=== PATIENT | female | born 1945 | race Caucasian/White ===

== ENCOUNTER 2017-03-14 00:16 | Inpatient (IN) | payer MEDICARE, MEDICAID ==
[~2017-03-14] VITALS: Ht 162.6 cm; Wt 108.9 kg
--- NOTE | 2017-03-14 00:10 | NUR ---
Pt arrived to the hospital via transport and placed on Mac vent with the following settings of AC-12, Vt-500, PEEP+5, FIO2-40%. Pt trach with Portex # 8 cuffed trach, which is in placed and secure. No s/s of respiratory distress noted. Airway care done, pt responded to physical stimuli. Resus. bag at bedside. Vent and alarms on and audible.
[~2017-03-14 00:16] MED LIST: ACET325T53 PO; ALBU2.5V13 IH; AMIO200T2 PO; ASCO500T9 PO; ASPI-991 PO; BLOO-125 IN; CALC-20 PO; FERR-58 PO; GLUC1KIT6 IJ; HYDR30CR79 RC; IPRA0.2S6 NEB; LORA1TAB PO; MAG30ORA PO; MAGN400O4 PO; MAGN400T3 PO; METO25TA6 PO; MULT-619 PO; OMEP20CA10 PO; WARF4TAB41 PO; [UNRECOGNIZED DRUG - CODE] PO
[2017-03-14] MEDS ORDERED: LIOT5TAB3 PO (00:24)
[2017-03-14] MEDS ORDERED: CRAN450C PO (00:24)
[2017-03-14] MEDS ORDERED: HYDR28.316 RC (00:24)
[2017-03-14] MEDS ORDERED: LEVO50TA8 PO (00:24)
--- NOTE | 2017-03-14 00:29 | NUR ---
In-line HHn tx with 2.5mg Albuterol+0.5mg Atrovent given, pt tolerated well.
[2017-03-14] MEDS ORDERED: ALBUTEROL SULFATE 2.5 MG/3 ML NEBU NEB ONE (00:30)
[2017-03-14] MEDS ORDERED: IPRATROPIUM BROMIDE 0.5 MG/2.5 ML NEBU NEB ONE (00:30)
[2017-03-14] MEDS ORDERED: IV NORMAL SALINE 1000 ML BAG IV ONE (00:30)
[2017-03-14] MEDS ORDERED: ALBUTEROL SULFATE 2.5 MG/3 ML NEBU ONE ×2 (00:35→04:03)
[2017-03-14] MEDS ORDERED: IPRATROPIUM BROMIDE 0.5 MG/2.5 ML NEBU ONE ×2 (00:36→04:04)
[2017-03-14 00:39] LABS: BASOPHILS % (AUTO) 0.4 % (0.0-2.0); EOSINOPHILS # (AUTO) 0.2 K/uL (0.0-0.7); EOSINOPHILS % (AUTO) 2.1 % (0.0-7.0); HEMATOCRIT 32.6 % (37-47); HEMOGLOBIN 10.6 G/DL (12.0-16.0); LYMPHOCYTES # (AUTO) 1.4 K/UL (0.8-4.8); LYMPHOCYTES % (AUTO) 15.1 % (20.5-51.5); MEAN CORPUSCULAR HEMOGLOBIN 28.4 UUG (27.0-31.0); MEAN CORPUSCULAR HGB CONC 33 g/dL (32.0-37.0); MEAN CORPUSCULAR VOLUME 87.3 FL (81.0-99.0); MONOCYTES # (AUTO) 0.6 K/UL (0.1-1.30); MONOCYTES % (AUTO) 6.4 % (0.0-11.0); NEUTROPHILS # (AUTO) 7.4 K/UL (1.8-8.9); PLATELET COUNT (AUTO) 235 K/UL (150-450); RED BLOOD CELL COUNT(AUTO) 3.73 MIL/UL (4.2-5.4); WHITE BLOOD COUNT (AUTO) 9.6 K/UL (4.0-11.2)
[2017-03-14] MEDS ORDERED: PHEN177S31 MM ×2 (00:42→09:19)
[2017-03-14] MEDS ORDERED: LACT1CAP69 PO (00:42)
[2017-03-14] MEDS ORDERED: POLY15DR57 EACHEYE (00:42)
[2017-03-14] MEDS ORDERED: RIVA10TA PO (00:42)
[2017-03-14] MEDS ORDERED: CALC-995 PO (00:42)
[2017-03-14] MEDS ORDERED: HYDR-3326 PO (00:42)
[2017-03-14] MEDS ORDERED: METO25TA6 PO (00:42)
[2017-03-14] MEDS ORDERED: FAMO-132 PO (00:42)
[2017-03-14 00:46] LABS: CREATININE 1.1 mg/dL (0.6-1.3); POTASSIUM 4.2 mmol/L (3.5-5.1)
[2017-03-14] MEDS ORDERED: ALBU2.5V13 IH (00:55)
[2017-03-14] MEDS ORDERED: IPRA0.2S48 IH (00:55)
[2017-03-14] MEDS ORDERED: LIDOCAINE 3% TOP (00:55)
[2017-03-14 00:57] LABS: BILIRUBIN,DIRECT 0.1 mg/dL (0.0-0.2); BILIRUBIN,TOTAL 0.3 mg/dL (0.2-1.0); TOTAL PROTEIN, SERUM 7.9 g/dL (6.4-8.2)
--- NOTE | 2017-03-14 01:13 | NUR ---
Pt biba from facility for blood in colostomy bag. Pt trach dependent, lungs CTA. Pt morbidly obese, pos BS. Pt seen by MD. Labs drawn and sent. IV established. Pt resting in position of comfort for self.
--- NOTE | 2017-03-14 02:15 | NUR ---
Pt resting in position of comfort for self. No complaints at this time.
--- NOTE | 2017-03-14 03:30 | NUR ---
Pt cleaned and changed. Preparing to transfer pt to the floor
--- NOTE | 2017-03-14 03:55 | NUR ---
In-line HHN tx given, pt tolerated well.
[2017-03-14 04:00] VITALS: BP 113/63
[2017-03-14] MEDS ORDERED: ALBUTEROL SULFATE 2.5 MG/3 ML NEBU NEB SCH (04:00)
[2017-03-14] MEDS ORDERED: MORPHINE SULFATE 4 MG/1 ML DISP.SYRIN IV PRN (04:00)
[2017-03-14] MEDS ORDERED: IPRATROPIUM BROMIDE 0.5 MG/2.5 ML NEBU NEB SCH (04:00)
--- NOTE | 2017-03-14 04:00 | NUR ---
Pt medicated for discomfort. RT at bedside. Transferring pt to floor
[2017-03-14] MEDS ORDERED: MORPHINE SULFATE 4 MG/1 ML DISP.SYRIN ONE (04:03)
--- NOTE | 2017-03-14 04:30 | NUR ---
ADMIT NEW PATIENT TO ROOM 211,PATIENT ALERT, NOT IN DISTRESS,TOLERATED SAME VENT SETTING ,PULSE OXY AT BEDSIDE,PATIENT ABLE TO MAKE NEEDS KNOWN ALL NEEDS ATTENDED,INCONTINENT CARE DONE, COLOSTOMY BAG HAS SCANT AMOUNT OF BLOODY LIQUID STOOL.A PACING ON TALE MONITOR.
--- NOTE | 2017-03-14 04:46 | NUR ---
Pt transferred to room 211 on vent with two RT's and ORCHARD WORKER at bedside. No distress noted. Cont. pulse ox on. Back up trach and resus. bag at bedside. Vent and alarms on and audible.
--- NOTE | 2017-03-14 06:07 | NUR ---
Pt awake, alert, no s/s of respiratory distress noted. Present vent settings tolerated well, no changes made. Sx and lavage prn. HME and Sx [place] changed. Cont. pulse ox on. Vent and alarms on and audible.
[2017-03-14 06:53] LABS: BASOPHILS % (AUTO) 0.3 % (0.0-2.0); EOSINOPHILS # (AUTO) 0.3 K/uL (0.0-0.7); HEMATOCRIT 30.8 % (37-47); HEMOGLOBIN 10.1 G/DL (12.0-16.0); LYMPHOCYTES # (AUTO) 1.5 K/UL (0.8-4.8); MEAN CORPUSCULAR HEMOGLOBIN 29.8 UUG (27.0-31.0); MEAN CORPUSCULAR HGB CONC 33 g/dL (32.0-37.0); MEAN CORPUSCULAR VOLUME 90.9 FL (81.0-99.0); MONOCYTES # (AUTO) 0.7 K/UL (0.1-1.30); MONOCYTES % (AUTO) 8.5 % (0.0-11.0); NEUTROPHILS # (AUTO) 6.1 K/UL (1.8-8.9); NEUTROPHILS % (AUTO) 71.2 % (38.5-71.5); PLATELET COUNT (AUTO) 217 K/UL (150-450); RED BLOOD CELL COUNT(AUTO) 3.39 MIL/UL (4.2-5.4); WHITE BLOOD COUNT (AUTO) 8.6 K/UL (4.0-11.2)
[2017-03-14 07:24] VITALS: BP 119/70
[2017-03-14] MEDS ORDERED: BLOOD SUGAR DIAGNOSTIC 1 EACH STRIP VI SCH ×2 (07:30→17:30)
--- NOTE | 2017-03-14 08:00 | NUR ---
awake alert and oriented x 4, needs attended, communicates by writing, on vent with the following settings: AC 12, TV 500, FIO2 40%, PEEP 5 via trache, head of bed elevated, tele -paced at 70, colostomy on the left lower abdomen, with small amount of light brownish liquid, no fresh blood noted, safety measures maintained, call light within reach
[2017-03-14] MEDS ORDERED: DEXT15DR6 EACHEYE (09:18)
[2017-03-14] MEDS ORDERED: ASPIRIN EC 81 MG TABLET.DR PO SCH (10:00)
[2017-03-14] MEDS ORDERED: HYDROCODONE/APAP 5-325MG TABLET PO PRN (10:00)
[2017-03-14] MEDS ORDERED: MAG HYDROX/AL HYDROX/SIMETH 30 ML LIQUID UDC PO PRN (10:00)
[2017-03-14] MEDS ORDERED: PHENOL/SODIUM PHENOLATE SPRAY 177 ML BOTTLE MM PRN (10:00)
[2017-03-14] MEDS ORDERED: GLUCAGON,HUMAN RECOMBINANT 1 MG VIAL IM PRN (10:00)
[2017-03-14] MEDS ORDERED: MAGNESIUM HYDROXIDE 30 ML LIQUID UDC PO PRN (10:00)
[2017-03-14] MEDS ORDERED: POLYVINYL ALCOHOL OPHT DROPS 15 ML BOTTLE EACHEYE PRN (10:00)
[2017-03-14] MEDS ORDERED: INSULIN REGULAR, HUMAN 300 UNIT/3 ML VIAL SQ PRN (10:15)
[2017-03-14] MEDS ORDERED: DEXTROSE 50% 50 ML DISP.SYRIN IV PRN (10:15)
[2017-03-14] MEDS: ACETAMINOPHEN 325 MG TABLET PO PRN (10:59)
[2017-03-14] MEDS: AMIODARONE HCL 200 MG TABLET PO SCH (11:00)
[2017-03-14] MEDS: LORAZEPAM 0.5 MG TABLET PO SCH ×3 (11:00→19:03)
[2017-03-14] MEDS: LIOTHYRONINE SODIUM 5 MCG TABLET PO SCH (11:00)
[2017-03-14] MEDS: LEVOTHYROXINE SODIUM 50 MCG TABLET PO SCH (11:00)
--- NOTE | 2017-03-14 11:15 | NUR ---
seen by Dr Redman
[2017-03-14 11:35] VITALS: BP 116/64
--- NOTE | 2017-03-14 12:00 | NUR ---
appetite fair, repositioned q 2h with heels off loaded wisth pillows, no distress noted, sat at 99% with same vent settings, needs attended
[2017-03-14] MEDS: BLOOD SUGAR DIAGNOSTIC 1 EACH STRIP VI SCH ×3 (12:05→20:59)
[2017-03-14] MEDS: PANTOPRAZOLE SODIUM 40 MG TABLET.DR PO SCH (12:07)
[2017-03-14 12:15] LABS: BASOPHILS % (AUTO) 0.4 % (0.0-2.0); EOSINOPHILS # (AUTO) 0.2 K/uL (0.0-0.7); EOSINOPHILS % (AUTO) 2.9 % (0.0-7.0); HEMATOCRIT 31.5 % (37-47); HEMOGLOBIN 10.1 G/DL (12.0-16.0); LYMPHOCYTES # (AUTO) 1.2 K/UL (0.8-4.8); LYMPHOCYTES % (AUTO) 15.8 % (20.5-51.5); MEAN CORPUSCULAR HEMOGLOBIN 28.3 UUG (27.0-31.0); MEAN CORPUSCULAR HGB CONC 32 g/dL (32.0-37.0); MEAN CORPUSCULAR VOLUME 87.9 FL (81.0-99.0); MONOCYTES # (AUTO) 0.5 K/UL (0.1-1.30); NEUTROPHILS # (AUTO) 5.6 K/UL (1.8-8.9); NEUTROPHILS % (AUTO) 73.9 % (38.5-71.5); PLATELET COUNT (AUTO) 228 K/UL (150-450); RED BLOOD CELL COUNT(AUTO) 3.58 MIL/UL (4.2-5.4); WHITE BLOOD COUNT (AUTO) 7.5 K/UL (4.0-11.2)
[2017-03-14] MEDS ORDERED: LORAZEPAM 1 MG TABLET PO SCH (13:00)
[2017-03-14] MEDS: IPRATROPIUM BROMIDE 0.5 MG/2.5 ML NEBU NEB SCH ×2 (13:02→19:54)
[2017-03-14] MEDS: ALBUTEROL SULFATE 2.5 MG/ 0.5 ML NEBU IH SCH ×2 (13:02→19:54)
[2017-03-14] MEDS: FERROUS SULFATE 325 MG TABEC PO SCH ×2 (13:16→17:02)
[2017-03-14] MEDS: ACIDOPHILUS/BULGARICUS CHEW TAB PO SCH ×2 (13:16→20:57)
[2017-03-14] MEDS: POLYVINYL ALCOHOL OPHT DROPS 15 ML BOTTLE EACHEYE SCH ×2 (13:17→21:01)
[2017-03-14 15:11] VITALS: BP 122/72
--- NOTE | 2017-03-14 15:42 | NUR ---
family here visiting, no bleeding noted, same amount of light brownish liquid noted in the colostomy
[2017-03-14] MEDS ORDERED: PROTEIN SUPPLEMENT (PROSTAT) 30 ML LIQUID PO SCH (17:00)
[2017-03-14] MEDS: PROTEIN SUPPLEMENT (PROSTAT) 30 ML LIQUID PO SCH (17:02)
--- NOTE | 2017-03-14 19:00 | NUR ---
no distress noted, all needs attended and met, on same vent settings, sat at 96%, repositioned q 2h with heel offloaded with pillows, call light within reach
--- NOTE | 2017-03-14 19:56 | NUR ---
Pt asleep, received on Mac vent with the following settings of AC-12, Vt-500, PEEP+5, FIO2-40%, trached with Portex#8 cuffed trach, which is in the place and secure. No s/s of respiratory distress noted. Airway care done, pt responded to physical stimuli. In-line HHN tx with 2.5mg Albuterol+0.5mg Atrovent given, no adverse reaction noted. HME changed. Resus. bag and back up trach at bedside. Vent and alarms checked and reset.
[2017-03-14 20:00] VITALS: BP 128/73
[2017-03-14] MEDS: FAMOTIDINE 20 MG TABLET PO SCH (20:57)
[2017-03-14] MEDS: HYDROCORTISONE 2.5 % RECTAL CREAM 28.35 GM TUBE RC SCH (20:58)
[2017-03-14] MEDS: METOPROLOL TARTRATE 25 MG TABLET PO SCH (21:03)
[2017-03-14] MEDS: CALCIUM CARB/VITAMIN D 500MG-200UNITS TABLET PO SCH (21:08)
[2017-03-15] VITALS: BP 140/79
[2017-03-15] MEDS: ACETAMINOPHEN 325 MG TABLET PO PRN (00:21)
[2017-03-15] MEDS: IPRATROPIUM BROMIDE 0.5 MG/2.5 ML NEBU NEB SCH ×4 (00:44→19:48)
[2017-03-15] MEDS: ALBUTEROL SULFATE 2.5 MG/ 0.5 ML NEBU IH SCH ×4 (00:44→19:48)
[2017-03-15 04:00] VITALS: BP 125/72
[2017-03-15] MEDS: IPRATROPIUM BROMIDE 0.5 MG/2.5 ML NEBU IH PRN (04:10)
[2017-03-15] MEDS: ALBUTEROL SULFATE 2.5 MG/ 0.5 ML NEBU IH PRN (04:11)
--- NOTE | 2017-03-15 05:54 | NUR ---
Cont. monitor pt on present vent settings. At this time pt asleep. During the shift no respiratory distress noted. Present vent settings pt tolerated well, no changes made. At 04:10 pt requested PRN HHN tx. Tx given, pt tolerated well. Sx and lavage prn. Cont. pulse ox on. Resus. bag and back up trach at bedside. Vent and alarms checked and reset.
[2017-03-15] MEDS: LIOTHYRONINE SODIUM 5 MCG TABLET PO SCH (06:13)
[2017-03-15] MEDS: PANTOPRAZOLE SODIUM 40 MG TABLET.DR PO SCH (06:13)
[2017-03-15] MEDS: ACIDOPHILUS/BULGARICUS CHEW TAB PO SCH ×3 (06:14→21:19)
[2017-03-15] MEDS: LEVOTHYROXINE SODIUM 50 MCG TABLET PO SCH (06:14)
[2017-03-15] MEDS: POLYVINYL ALCOHOL OPHT DROPS 15 ML BOTTLE EACHEYE SCH ×3 (06:17→21:18)
[2017-03-15] MEDS ORDERED: Medication Not On Formulary EA (Omeprazole 20 MG) PO SCH (06:30)
[2017-03-15 06:37] LABS: BASOPHILS % (AUTO) 0.4 % (0.0-2.0); EOSINOPHILS # (AUTO) 0.2 K/uL (0.0-0.7); EOSINOPHILS % (AUTO) 2.4 % (0.0-7.0); HEMOGLOBIN 10.2 G/DL (12.0-16.0); LYMPHOCYTES # (AUTO) 1.6 K/UL (0.8-4.8); LYMPHOCYTES % (AUTO) 20.1 % (20.5-51.5); MEAN CORPUSCULAR HEMOGLOBIN 29.1 UUG (27.0-31.0); MEAN CORPUSCULAR HGB CONC 33 g/dL (32.0-37.0); MEAN CORPUSCULAR VOLUME 88.4 FL (81.0-99.0); MONOCYTES # (AUTO) 0.6 K/UL (0.1-1.30); MONOCYTES % (AUTO) 8.2 % (0.0-11.0); NEUTROPHILS # (AUTO) 5.3 K/UL (1.8-8.9); NEUTROPHILS % (AUTO) 68.9 % (38.5-71.5); PLATELET COUNT (AUTO) 233 K/UL (150-450); RED BLOOD CELL COUNT(AUTO) 3.51 MIL/UL (4.2-5.4); WHITE BLOOD COUNT (AUTO) 7.8 K/UL (4.0-11.2)
[2017-03-15] MEDS: BLOOD SUGAR DIAGNOSTIC 1 EACH STRIP VI SCH ×4 (06:45→21:22)
--- NOTE | 2017-03-15 06:57 | NUR ---
PATIENT SLEPT INTERMITTENTLY THROUGH OUT THE NIGHT. DR. LUTHER SEEN PATIENT LAST NIGHT. ORDERED COLONOSCOPY ON Wednesday03/16/2017. PATIENT IS ON CLEAR LIQUIDS AT THIS TIME. COLONOSCOPY CONSENT SIGNED. PATIENT IN SIGNS OF ACUTE DISTRESS. IV SITE CLEAN AND INTACT. OSTOMY SITE IS PATENT AND INTACT. STILL DRAINING BROWNISH FLUID. GAS RELEASED. TRACHE INTACT. DRESSING CHANGED. SAFETY MAINTAINED AT ALL TIMES.
[2017-03-15 07:21] LABS: BILIRUBIN,TOTAL 0.2 mg/dL (0.2-1.0); MAGNESIUM 1.9 mg/dL (1.8-2.4); PHOSPHOROUS 3.5 mg/dL (2.5-4.9); POTASSIUM 4.1 mmol/L (3.5-5.1); TOTAL PROTEIN, SERUM 7.5 g/dL (6.4-8.2)
[2017-03-15 08:00] VITALS: BP 131/80
--- NOTE | 2017-03-15 08:00 | NUR ---
awake alert and oriented, able to let her needs known by writing, on vent with same settings, on continuos pulse oximetry sat at 97%, tele paced at 70, denies of pain, colostomy- with scant amount of brownish liquid, no bleeding noted, suctioned via tracheostomy small amount of whitish thin secretions, head of bed elevated, call light within reach.
[2017-03-15] MEDS: PROTEIN SUPPLEMENT (PROSTAT) 30 ML LIQUID PO SCH ×2 (08:12→17:30)
[2017-03-15] MEDS: CALCIUM CARB/VITAMIN D 500MG-200UNITS TABLET PO SCH ×2 (08:22→21:17)
[2017-03-15] MEDS: FERROUS SULFATE 325 MG TABEC PO SCH ×3 (08:22→17:30)
[2017-03-15] MEDS: ASCORBIC ACID 500 MG TABLET PO SCH (08:22)
[2017-03-15] MEDS: AMIODARONE HCL 200 MG TABLET PO SCH (08:22)
[2017-03-15] MEDS: MULTIVIT, IRON, MIN NO. 8, FA TABLET PO SCH (08:22)
[2017-03-15] MEDS: LORAZEPAM 0.5 MG TABLET PO SCH ×3 (08:22→17:30)
[2017-03-15] MEDS: MAGNESIUM OXIDE 400 MG TABLET PO SCH (08:22)
[2017-03-15 12:00] VITALS: BP 124/76
--- NOTE | 2017-03-15 12:30 | NUR ---
seen by Dr Amador with orders
[2017-03-15 16:00] VITALS: BP 124/71
--- NOTE | 2017-03-15 16:00 | NUR ---
seen by Dr Theodore- for colonoscopy in am
--- NOTE | 2017-03-15 18:00 | NUR ---
no distress noted, suctioned via tracheostomy as needed, all needs attended and met, safety measures maintained, call light within each
--- NOTE | 2017-03-15 18:19 | NUR ---
RECEIVED PT AWAKE AND ALERT ON CURRENT VENT SETTINGS OF AC 12, VT 500, FIO2 40% AND PEEP 5. IN LINE TREATMENT GIVEN WITHOUT COMPLICATION. SUCTIONED FOR MODERATE AMOUNT OF THICK PALE YELLOW SECRETIONS. 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 NO NEW ORDER RECEIVED.
--- NOTE | 2017-03-15 18:27 | NUR ---
called Dr Redman re positive MRSA nares- Dr España etch operator semiconductor wafers- to return call
--- NOTE | 2017-03-15 18:35 | NUR ---
Dr España called with order- contact isolation initiated
--- NOTE | 2017-03-15 19:10 | NUR ---
Bedside reporting with RONNIE Banda. Patient sleeping at this time. HOB elevated with trach connected to Mech vent with prescribes setting, tolerating well with O2 sat of 98% at this time.Colostomy intact with slight bleeding noted. Contact isolation maintained for MRSA of the nares. Safety measures and fall precaution maintain. Continue care as planned.
--- NOTE | 2017-03-15 19:51 | NUR ---
Pt rec'd on Mac settings AC 12, VT 500, PEEP+5 and FIO2-40%. No resp. distress noted. Portex 8 patent and secure. B/U Portex 8 and BVM at bedside. Pt to be monitored throughout the shift, PRN SX and adm'd resp neb txs per MD orders. Mac alarm parameters have been checked and remain audible at this time,
[2017-03-15 20:22] VITALS: BP 130/52
[2017-03-15] MEDS: METOPROLOL TARTRATE 25 MG TABLET PO SCH (21:16)
[2017-03-15] MEDS: FAMOTIDINE 20 MG TABLET PO SCH (21:17)
[2017-03-15] MEDS: HYDROCORTISONE 2.5 % RECTAL CREAM 28.35 GM TUBE RC SCH (21:18)
[2017-03-15] MEDS: MUPIROCIN 2% OINT 22 GM TUBE NS SCH (21:19)
[2017-03-15] MEDS ORDERED: GOLYTELY 4000 ML BOTTLE PO ONE (22:00)
--- NOTE | 2017-03-15 22:00 | NUR ---
Patient refused to drink Golytely at this time despite explaining the reason and benefit of it. Charge nurse aware.
--- NOTE | 2017-03-15 22:15 | NUR ---
Finally able to convince patient. Start drinking golytely with ice.
--- NOTE | 2017-03-15 22:30 | NUR ---
Called telling she does not like to drink the Golytely anymore. Patient wont listen to reasons, just shook her head for NO.
--- NOTE | 2017-03-15 23:00 | NUR ---
Informed Dr. Theodore about patient refusal to consumed Golytely. Receive order to insert NGT now and if she refuse start administering Tap water enema through colostomy tonight and repeat again at 0600. Charge Nurse made aware.
--- NOTE | 2017-03-15 23:42 | NUR ---
Informed and explained to patient about Md new order of inserting NGT and she agreed, while in the middle of the procedure, patient just suddenly removed the NGT away and and wants us to go away. Charge nurse at bedside.
[2017-03-16] VITALS: BP 125/55
--- NOTE | 2017-03-16 00:15 | NUR ---
Start drinking golytely.
--- NOTE | 2017-03-16 00:51 | NUR ---
Had watery tarry colored stool 500 cc.
--- NOTE | 2017-03-16 01:10 | NUR ---
Had a lot of black watery stools with some solid hard stools like golf ball size. Continue to monitor. Almost consumed Golytely at this time.
[2017-03-16] MEDS: ALBUTEROL SULFATE 2.5 MG/ 0.5 ML NEBU IH SCH ×4 (01:16→19:54)
[2017-03-16] MEDS: IPRATROPIUM BROMIDE 0.5 MG/2.5 ML NEBU NEB SCH ×4 (01:16→19:54)
--- NOTE | 2017-03-16 01:25 | NUR ---
Golytely consumed. No problem presented.
[2017-03-16] MEDS: ACETAMINOPHEN 325 MG TABLET PO PRN ×3 (02:05→22:21)
--- NOTE | 2017-03-16 02:09 | NUR ---
Tylenol gr 10 given for complaint of CRUZ. Dez monitor.
[2017-03-16 04:00] VITALS: BP 132/60
--- NOTE | 2017-03-16 04:03 | NUR ---
Complete bed bath given due to incontinence of B and B. Pt able to participate with her care, very cooperative. Denies any more headache this time. Made comfortable.
--- NOTE | 2017-03-16 05:25 | NUR ---
Pt remains on Mac with no changes made to the ventilator settings. No resp. distress noted throughout the shift. Portex 8 remains patent and secure; B/U Portex 8 and BVM at bedside. Pt routinely sx'd and appeared to tolerate resp neb txs and vent settings well. Mac alarm parameters have been checked and remain audible.
[2017-03-16] MEDS: ACIDOPHILUS/BULGARICUS CHEW TAB PO SCH ×3 (05:56→21:08)
[2017-03-16] MEDS: BLOOD SUGAR DIAGNOSTIC 1 EACH STRIP VI SCH ×4 (05:56→21:26)
[2017-03-16] MEDS: PANTOPRAZOLE SODIUM 40 MG TABLET.DR PO SCH (05:56)
[2017-03-16] MEDS: LEVOTHYROXINE SODIUM 50 MCG TABLET PO SCH (05:56)
[2017-03-16] MEDS: LIOTHYRONINE SODIUM 5 MCG TABLET PO SCH (05:57)
[2017-03-16] MEDS: POLYVINYL ALCOHOL OPHT DROPS 15 ML BOTTLE EACHEYE SCH ×3 (05:58→21:12)
--- NOTE | 2017-03-16 06:48 | NUR ---
Informed Dr. Theodore about patient's color , amount and consistency of her stool after the bowel prep ordered. No new order given.
[2017-03-16 07:00] LABS: BASOPHILS % (AUTO) 0.5 % (0.0-2.0); EOSINOPHILS # (AUTO) 0.1 K/uL (0.0-0.7); EOSINOPHILS % (AUTO) 1.4 % (0.0-7.0); HEMATOCRIT 31.5 % (37-47); HEMOGLOBIN 10.6 G/DL (12.0-16.0); LYMPHOCYTES # (AUTO) 1.3 K/UL (0.8-4.8); LYMPHOCYTES % (AUTO) 15.1 % (20.5-51.5); MEAN CORPUSCULAR HEMOGLOBIN 29.4 UUG (27.0-31.0); MEAN CORPUSCULAR HGB CONC 34 g/dL (32.0-37.0); MEAN CORPUSCULAR VOLUME 87.4 FL (81.0-99.0); MONOCYTES # (AUTO) 0.5 K/UL (0.1-1.30); MONOCYTES % (AUTO) 5.9 % (0.0-11.0); NEUTROPHILS # (AUTO) 6.9 K/UL (1.8-8.9); NEUTROPHILS % (AUTO) 77.1 % (38.5-71.5); PLATELET COUNT (AUTO) 242 K/UL (150-450); WHITE BLOOD COUNT (AUTO) 8.8 K/UL (4.0-11.2)
--- NOTE | 2017-03-16 07:00 | NUR ---
Bedside report given to RONNIE Banda
[2017-03-16 07:32] LABS: BILIRUBIN,TOTAL 0.3 mg/dL (0.2-1.0); CREATININE 0.9 mg/dL (0.6-1.3); MAGNESIUM 2.1 mg/dL (1.8-2.4); PHOSPHOROUS 3.3 mg/dL (2.5-4.9); POTASSIUM 4.3 mmol/L (3.5-5.1); TOTAL PROTEIN, SERUM 7.7 g/dL (6.4-8.2)
[2017-03-16 08:00] VITALS: BP 129/71
[2017-03-16] MEDS: PROTEIN SUPPLEMENT (PROSTAT) 30 ML LIQUID PO SCH ×2 (08:00→16:59)
--- NOTE | 2017-03-16 08:00 | NUR ---
awake alert and oriented, on same vent setting with sat of 97&, denies of pain, explained plan of care- verbalized understanding, for colonoscopy today, kept npo, colostomy bag with greenish liquid, tele A paced, saline lock on the left upper chest patent and intact, GI lab called and will be taking her at 0830, called Alejandra (daughter ) and in formed, MRSA nares isolation observed, call light within reach
[2017-03-16] MEDS: MUPIROCIN 2% OINT 22 GM TUBE NS SCH ×2 (08:49→21:11)
--- NOTE | 2017-03-16 09:13 | NUR ---
to GI lab for colonoscopy
[2017-03-16] MEDS ORDERED: PROPOFOL 200 MG/20 ML BOTTLE IV ONE (09:18)
[2017-03-16] MEDS ORDERED: IV NORMAL SALINE 1000 ML BAG IV ONE (09:18)
--- NOTE | 2017-03-16 11:15 | NUR ---
back from [facility] with RN and RT, awake alert and oriented, on vent with same settings, sat at 97%, colostomy bag in place, no bleeding noted, vss wnl, call light within reach
[2017-03-16 11:25] VITALS: BP 114/63
[2017-03-16] MEDS: MULTIVIT, IRON, MIN NO. 8, FA TABLET PO SCH (11:34)
[2017-03-16] MEDS: LORAZEPAM 0.5 MG TABLET PO SCH ×3 (11:35→18:42)
[2017-03-16] MEDS: MAGNESIUM OXIDE 400 MG TABLET PO SCH (11:35)
[2017-03-16] MEDS: CALCIUM CARB/VITAMIN D 500MG-200UNITS TABLET PO SCH ×2 (11:35→21:08)
[2017-03-16] MEDS: FERROUS SULFATE 325 MG TABEC PO SCH ×3 (11:35→18:42)
[2017-03-16] MEDS: AMIODARONE HCL 200 MG TABLET PO SCH (11:35)
[2017-03-16] MEDS: ASCORBIC ACID 500 MG TABLET PO SCH (11:35)
[2017-03-16 12:45] LABS: ABG BASE EXCESS 8.7 mmol/L; ABG HCO3 36.9 mmol/L; ABG PCO2 72.3 mmHg (35.0-45.0); ABG PH 7.326 (7.350-7.450); ABG PO2 87.4 mmHg (75.0-100.0); ABG SITE RIGHT RADIAL; ABG TOTAL HEMOGLOBIN 11.2 G/dL (12.0-16.0); COHb 1.5 % (0.5-1.5); MetHb 0.3 % (0.0-1.5); O2Hb 94.2 % (94.0-97.0); VENT MODE VENT - A/C; VT, ABG 500 mL
--- NOTE | 2017-03-16 12:52 | NUR ---
seen by Dr Marti GIORDANO results- with orders, pt removed saline lock Addendum: 03/16/17 at 1254 by HEATHER NOEL RN refused to have another saline lock inserted
--- NOTE | 2017-03-16 16:00 | NUR ---
tele d/cd per Dr Emerson, no distress noted. needs attended and met
[2017-03-16 16:17] VITALS: BP 119/70
[2017-03-16] MEDS ORDERED: RIVAROXABAN 10 MG TABLET PO SCH (18:00)
--- NOTE | 2017-03-16 18:16 | NUR ---
resting, no distress noted, sat at 97%, on vent with the following settings: AC 16, TV 500, FIO2 40%, peep 5, all needs attended and met, no bleeding noted, colostomy bag empty, isolation for mrsa nares observed, call light within reach
[2017-03-16 19:00] VITALS: BP 138/91
--- NOTE | 2017-03-16 19:54 | NUR ---
Pt received on Mac vent with the following settings of AC 16, VT 500, Peep +5, FiO2 40%. Trached with a Portex 8 cuffed trach which is secured and patent. Pt is awake and alert, no signs of respiratory distress noted at this time. In-line tx given per md orders with 2.5mg Albuterol and 0.5mg Atrovent. Changed HME. Ambu-bag and back-up trach at bedside. Vent alarms audible and functioning. Will continue to monitor pt throughout shift.
--- NOTE | 2017-03-16 20:00 | NUR ---
PATIENT AWAKE,ALERT,ORIENTED,ABLE TO MAKE NEEDS KNOWN, STABLE ON SAME VENT SETTING,O2 SAT 97%,NO RESPIRATORY DISTRESS, COLOSTOMY BAG SITE DRY ,INTACT, NO BLEEDING NOTED.
[2017-03-16] MEDS: FAMOTIDINE 20 MG TABLET PO SCH (21:08)
[2017-03-16] MEDS: METOPROLOL TARTRATE 25 MG TABLET PO SCH (21:11)
[2017-03-16] MEDS: HYDROCORTISONE 2.5 % RECTAL CREAM 28.35 GM TUBE RC SCH (21:12)
[2017-03-17 00:24] VITALS: BP 103/64
[2017-03-17] MEDS: IPRATROPIUM BROMIDE 0.5 MG/2.5 ML NEBU NEB SCH ×2 (00:56→07:45)
[2017-03-17] MEDS: ALBUTEROL SULFATE 2.5 MG/ 0.5 ML NEBU IH SCH ×2 (00:56→07:45)
[2017-03-17 04:36] VITALS: BP 112/74
[2017-03-17] MEDS: ALBUTEROL SULFATE 2.5 MG/ 0.5 ML NEBU IH PRN (05:58)
[2017-03-17] MEDS: IPRATROPIUM BROMIDE 0.5 MG/2.5 ML NEBU IH PRN (05:58)
[2017-03-17] MEDS: ACIDOPHILUS/BULGARICUS CHEW TAB PO SCH (06:29)
[2017-03-17] MEDS: LIOTHYRONINE SODIUM 5 MCG TABLET PO SCH (06:29)
[2017-03-17] MEDS: PANTOPRAZOLE SODIUM 40 MG TABLET.DR PO SCH (06:30)
[2017-03-17] MEDS: POLYVINYL ALCOHOL OPHT DROPS 15 ML BOTTLE EACHEYE SCH (06:30)
[2017-03-17] MEDS: LEVOTHYROXINE SODIUM 50 MCG TABLET PO SCH (06:30)
[2017-03-17] MEDS: BLOOD SUGAR DIAGNOSTIC 1 EACH STRIP VI SCH (06:30)
--- NOTE | 2017-03-17 06:54 | NUR ---
patient slept intermittently,no acute change, colostomy bag empty,site clean, no active bleeding noted,vital signs remains stable ,tolerated same vent setting,suction given, small white thin secretion.
[2017-03-17 07:45] VITALS: BP 122/63
--- NOTE | 2017-03-17 07:45 | NUR ---
RECEIVED PT AWAKE AND ALERT, VENT SETTINGS OF AC 16, 500VT, 40%FiO2, PEEP+5, PT VENT'D VIA TRACHEOSTOMY PORTEX#8 CUFFED TRACH TUBE, IN PLACE PATENT AND SECURE. INLINE TREATMENTS TO BE GIVEN PER MD ORDER. SXN'ING PRN TO BE DONE. VENT ALARMS AUDIBLE, CHECKED AND RESET. BACK-UP TRACH AND BVM AT BEDSIDE.
[2017-03-17] MEDS: FERROUS SULFATE 325 MG TABEC PO SCH (08:35)
[2017-03-17] MEDS: CALCIUM CARB/VITAMIN D 500MG-200UNITS TABLET PO SCH (08:35)
[2017-03-17] MEDS: LORAZEPAM 0.5 MG TABLET PO SCH (08:35)
[2017-03-17] MEDS: ASCORBIC ACID 500 MG TABLET PO SCH (08:35)
[2017-03-17] MEDS: MULTIVIT, IRON, MIN NO. 8, FA TABLET PO SCH (08:35)
[2017-03-17] MEDS: MAGNESIUM OXIDE 400 MG TABLET PO SCH (08:35)
[2017-03-17] MEDS: MUPIROCIN 2% OINT 22 GM TUBE NS SCH (08:36)
[2017-03-17] MEDS: AMIODARONE HCL 200 MG TABLET PO SCH (08:36)
[2017-03-17] MEDS: PROTEIN SUPPLEMENT (PROSTAT) 30 ML LIQUID PO SCH (08:36)
--- NOTE | 2017-03-17 09:00 | NUR ---
SEEN BY DR MEJIA WITH ORDERS. ASSISTANT FACILITY MANAGER MADE AWARE OF DISCHARGE ORDER
--- NOTE | 2017-03-17 11:43 | NUR ---
TRANSFERRED TO [facility] FOR CONTINUITY OF CARE STABLE WITH RESPIRATORY ON BOARD. REPORT GIVEN TO [facility]
== END 2017-03-17 11:52 | DRG 394 ==
LOC: ER 00:18 → DOU 03:37 → UNDOADMIN 03:37 → TELE-TD 04:13
PROVIDERS: ADMIT Internal Medicine; ATTEND Internal Medicine
PROC: 5A1945Z Respiratory Ventilation, 24-96 Consecutive Hours (ICD-10-PCS; 2017-03-14)
PROC: 0DJD8ZZ Inspection of Lower Intestinal Tract, Via Natural or Artificial Opening Endoscopic (ICD-10-PCS; principal; 2017-03-16 09:18)
DX: K94.09 Other complications of colostomy (principal); Z99.11 Dependence on respirator [ventilator] status; J96.12 Chronic respiratory failure with hypercapnia; J98.11 Atelectasis; J96.11 Chronic respiratory failure with hypoxia; I50.42 Chronic combined systolic (congestive) and diastolic (congestive) heart failure; E11.9 Type 2 diabetes mellitus without complications; I25.10 Atherosclerotic heart disease of native coronary artery without angina pectoris; Y83.9 Surgical procedure, unspecified as the cause of abnormal reaction of the patient, or of later complication, without mention of misadventure at the time of the procedure; Y73.1 Therapeutic (nonsurgical) and rehabilitative gastroenterology and urology devices associated with adverse incidents; Y92.009 Unspecified place in unspecified non-institutional (private) residence as the place of occurrence of the external cause; D64.9 Anemia, unspecified; E03.9 Hypothyroidism, unspecified; E66.9 Obesity, unspecified; F41.9 Anxiety disorder, unspecified; I25.5 Ischemic cardiomyopathy; I48.0 Paroxysmal atrial fibrillation; Z79.01 Long term (current) use of anticoagulants; Z79.82 Long term (current) use of aspirin; Z79.899 Other long term (current) drug therapy
CPT/HCPCS: 36415; 36600; 70030-TC; 71010; 83735; 84100; 84443; 85025; 85610; 87070; 93005; 94002; 94003; 94640; 94664; 94762; A4217; A4663; J1815; J2270; J3490; J3590; J7030